=== PATIENT | female | born 1940 | race Caucasian/White ===

== ENCOUNTER 2017-06-18 11:30 | Outpatient (CLI) ==
--- NOTE | 2017-06-18 12:56 | DI ---
EXAM: Chest two views CLINICAL INDICATION: Cough. COMPARISON: 06/02/2017. FINDINGS: PA and lateral views of the thorax are provided. There is some subtle increased opacity within the left lower lobe which could represent early pneumon ia. There is a small left pleural effusion. The remainder of the pulmonary parenchyma is clear and there is no pleural abnormality. The cardiomediastinal silhouette and visualized bony structures are unchanged with evidence of prior left axillary node dissection. There is also been prior cholecyste ctomy. IMPRESSION: 1. Possible early left lower lobe pneumonia. 2. Small left pleural effusion.
== END 2017-06-18 11:31 | disposition home or self-care (01) ==
LOC: RAD 11:30
PROVIDERS: ATTEND Family Medicine
DX: R05 Cough (principal)

== ENCOUNTER 2018-02-10 10:24 | Outpatient (CLI) | payer OTHER ==
--- NOTE | 2018-02-10 14:17 | DI ---
EXAM: Chest two views HISTORY: Shortness of breath COMPARISON: 06/18/2017 TECHNIQUE: Two views of the chest were performed FINDINGS: No airspace consolidation. Nodular opacities, left infrahilar region probably vascular isabel mmation artifact or conceivably granulomatous calcification. There is no pleural effusion or pneumot horax. The heart is enlarged and unchanged in size. The mediastinal contour is unchanged, noting at herosclerosis.. There are no acute abnormalities of the bones. IMPRESSION: 1. Cardiomegaly. No acute cardiopulmonary process. 2. Nodular opacities left infrahilar region probably vascular summation artifact or conceivably gran ulomatous calcification. Nodule considered less likely. Recommend radiographic follow-up [address] of the performed for further evaluation.
== END 2018-02-10 10:25 | disposition home or self-care (01) ==
LOC: RAD 10:24
PROVIDERS: ATTEND Family Medicine
DX: R06.02 Shortness of breath (principal)